=== PATIENT | female | born 1995 | race Caucasian/White ===

== ENCOUNTER 2021-03-29 20:17 | Emergency (ER) | payer OTHER, SELFPAY ==
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
[2021-03-29 20:24] VITALS: BP 124/77; PULSE 78; RESP 17; TEMP 36.7; O2SAT 95; BMI 33.0
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
[2021-03-29] MEDS: Ibuprofen 600 MG TABLET PO (22:16)
[2021-03-29 23:11] VITALS: BP 108/61; PULSE 60; RESP 16; O2SAT 98
--- NOTE | 2021-03-29 23:14 | PC.NURSE ---
PT RESTING ON BED. WAITING FOR CT REPORTS.
== END 2021-03-30 | disposition home or self-care (01) ==
PROVIDERS: Emergency Provider Emergency Medicine; PCP Internal Medicine
DX: S13.4XXA Sprain of ligaments of cervical spine, initial encounter (principal); M54.2 Cervicalgia; V43.52XA Car driver injured in collision with other type car in traffic accident, initial encounter; Y93.9 Activity, unspecified; Y92.410 Unspecified street and highway as the place of occurrence of the external cause; Y99.9 Unspecified external cause status; Z79.899 Other long term (current) drug therapy
CPT/HCPCS: 70450; 72125; 99284

== ENCOUNTER 2022-02-25 14:29 | Outpatient (REF) | payer OTHER, SELFPAY ==
--- NOTE | ~2022-02-25 | US_ITS ---
EXAMINATION: US DIAGNOSTIC ULTRASOUND BREAST, RIGHT CLINICAL INFORMATION: 26-year-old with palpable area noted by patient lateral right breast. Also clinical probable areas noted 6:00, 1 cm from nipple and 11:00, 5 cm from nipple. COMPARISON: Targeted ultrasound right breast 08/05/2007. TECHNIQUE: Ultrasound right breast is targeted to the areas of palpable concern using grayscale imaging and color Doppler without and with harmonics. FINDINGS: There is a macrolobulated anechoic mass 10:00 position 9 cm from nipple measuring 1.0 x 0.6 x 0.9 cm. There is subtle increased through-transmission of sound. No color flow. This likely represents a cyst although hypoechoic fibroadenoma may have similar appearance. Recommend follow-up ultrasound in 6 months. The remainder of the targeted area show no cystic or solid mass. There is no architectural abnormality or duct ectasia. Results are discussed with the patient at time of visit. US/US breast RT limited IMPRESSION: Avascular macrolobulated nodule right breast 10:00 position 9 cm from nipple measuring 1 cm, cyst versus fibroadenoma. ASSESSMENT: BI-RADS 3: Probably Benign RECOMMENDATION: Targeted right breast ultrasound in 6 months. This patient's information was entered into a reminder system with a target due date for their next breast imaging.
== END 2022-02-25 14:30 | disposition home or self-care (01) ==
LOC: HO.MAMMO 14:29
PROVIDERS: Visit Provider Nurse Practitioner Family
DX: N63.11 Unspecified lump in the right breast, upper outer quadrant (principal); N63.15 Unspecified lump in the right breast, overlapping quadrants
CPT/HCPCS: 76642

== ENCOUNTER 2022-09-01 14:59 | Outpatient (REF) | payer OTHER, SELFPAY ==
--- NOTE | ~2022-09-01 | US_ITS ---
EXAMINATION: US DIAGNOSTIC ULTRASOUND BREAST, RIGHT CLINICAL INFORMATION: 26-year-old for follow-up avascular macrolobulated nodule outer right breast 9 cm from All measuring 1 cm, cyst versus hypoechoic fibroadenoma. COMPARISON: Targeted ultrasound right breast 02/25/2022. TECHNIQUE: Ultrasound lateral right breast is performed using grayscale imaging and color Doppler. FINDINGS: There is no focal suspicious finding. There is no solid mass, architectural abnormality, duct ectasia, or edema in the soft tissue planes. There is a small cyst noted at site of previous described nodularity. Prior measurement is 10 x 6 x 9 mm and current measurement 3 x 4 mm. There is increased through-transmission of sound. No associated color flow. This is consistent with regressing cyst. No fibroadenoma demonstrated. Results are discussed with the patient at time of visit. US/US breast RT limited IMPRESSION: The nodule lateral right breast is decreased in size and shows increased through-transmission of sound and no associated color flow consistent with a regressing cyst. ASSESSMENT: BI-RADS 2: Benign RECOMMENDATION: Routine annual mammography screening, beginning age 40, or earlier as clinical risk factors warrant. This patient's information was entered into a reminder system with a target due date for their next mammogram.
== END 2022-09-01 15:00 | disposition home or self-care (01) ==
LOC: HO.MAMMO 14:59
PROVIDERS: PCP Internal Medicine; Visit Provider Internal Medicine
DX: N63.15 Unspecified lump in the right breast, overlapping quadrants (principal)
CPT/HCPCS: 76642

== ENCOUNTER 2023-03-02 20:20 | Emergency (ER) | payer MEDICAID, SELFPAY ==
--- NOTE | ~2023-03-02 | XR_ITS ---
EXAMINATION: XR KNEE, LEFT CLINICAL INFORMATION: Left knee pain COMPARISON: None available. TECHNIQUE: Four views of the left knee. FINDINGS: Bones are normal. No fracture. There is a defect seen in the soft tissues in the anterior raines - has this patient had a injury? A tiny knee joint effusion may be present. Alignment is anatomic. Joint spaces are well maintained. No abnormal soft tissue calcification. XR/XR knee LT 4V IMPRESSION: No evidence of an acute osseous injury. Question of soft tissue injury as described above and tiny joint effusion.
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
[2023-03-02 20:32] VITALS: BP 118/41; PULSE 77; RESP 16; TEMP 36.8; O2SAT 99; BMI 34.1
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
--- OUTSIDE RECORDS SUMMARY | 2023-03-02 21:32 | XMS_ITS | Continuity of Care Document ---
Author Name Unknown Organization [facility] Address [address] [place] [id number]- Care Team Providers Care Animal Daycare Provider Name Role Phone Javan Velazquez MD, Shahana Daugherty Primary Care Physician Encounter [facility] [place] Date(s): 10/11/20 - 11/10/20 [facility] [address] [place] [address] Allergies, Adverse Reactions, Alerts Substance Reaction Severity Status NKA Active Medications ibuprofen 800 mg oral tablet 800 mg, By Mouth, Every 8 hours, PRN, (4-6), may give 400mg per patient preference and re-dose [id number] within 8 hours if needed. Patient should only receive a total of 800mg of Ibuprofen every 8 hours., Refills 0, Maintenance, Pain , Moderate, 09... Start Date: 08/21/18 Status: Ordered ranitidine 300 mg oral tablet 1 tablet = 300 mg, By Mouth, Daily at bedtime, # 30 tablet, 0 Refills, Maintenance, 08/18/18 22:38:54 EDT, Tablet Start Date: 08/18/18 Status: Ordered
--- OUTSIDE RECORDS SUMMARY | 2023-03-02 21:32 | XMS_ITS | Continuity of Care Document ---
Author Name Unknown Organization [facility] Address Unknown Care Team Providers Care Manager Subway Name Role Phone Javan Velazquez MD, Chayo Daugherty Primary Care Physician Encounter [facility] [place] Date(s): 08/22/21 - 09/21/21 [facility] Allergies, Adverse Reactions, Alerts Substance Reaction Severity Status NKA Active Medications acetaminophen 325 mg oral tablet 650 mg, By Mouth, Every 4 hours, PRN, (1-3), may give 325mg per patient preference and re-dose [id number] within 4 hours, if needed. Patient should only receive a total of 650mg of Acetaminophen every 4 hours., Refills 0, Maintenance, Pain , Mild, 0... Start Date: 01/04/21 Status: Ordered acetaZOLAMIDE 250 mg oral tablet 250 mg, 1, tablet, By Mouth, 2 times a day, For the first few days take 250mg at bedtime, then twice a day, # 60 tablet, Refills 4, Tot. Refills 4, Maintenance, 08/22/21 12:39:00 EDT, Route to Pharmacy Electronically, [facility]/pharmacy #[id number], using for PTC... Start Date: 08/22/21 Stop Date: 01/19/22 Status: Ordered famotidine 20 mg oral tablet 20 mg, 1, tablet, By Mouth, 2 times a day, # 60 tablet, Refills 0, Maintenance, 01/02/21 14:25:00 EST, Partial fill upon patient request if the prescription is for a schedule II opioid drug. Start Date: 01/02/21 Status: Ordered ibuprofen 800 mg oral tablet 800 mg, By Mouth, Every 8 hours, PRN, (4-6), may give 400mg per patient preference and re-dose [id number] within 8 hours if needed. Patient should only receive a total of 800mg of Ibuprofen every 8 hours., Refills 0, Maintenance, Pain , Moderate, 09... Start Date: 08/21/18 Status: Ordered Multivitamins By Mouth, Daily, 0 Refills, Maintenance, 01/02/21 14:26:00 EST, Partial fill upon patient request if the prescription is for a schedule II opioid drug. Start Date: 01/02/21 Status: Ordered Problem List Condition Effective Dates Status Health Status Inform ant Chronic GERD(Confirmed) Active
--- OUTSIDE RECORDS SUMMARY | 2023-03-02 21:32 | XMS_ITS | Continuity of Care Document ---
Author Name Unknown Organization [facility] Address Unknown Care Team Providers Care Bridal Consultant Name Role Phone Javan Velazquez MD, Chayo Daugherty Primary Care Physician [phone] Encounter [facility] [place] Date(s): 08/07/21 - 09/06/21 [facility] Allergies, Adverse Reactions, Alerts Substance Reaction Severity Status NKA Active Medications acetaminophen 325 mg oral tablet 650 mg, By Mouth, Every 4 hours, PRN, (1-3), may give 325mg per patient preference and re-dose [id number] within 4 hours, if needed. Patient should [...] 08/22/21 12:39:00 EDT, Route to Pharmacy Electronically, [facility]/pharmacy #[id number], using for PTC... Start Date: 08/22/21 Stop [...] give 400mg per patient preference and re-dose [id number] within 8 hours if needed. Patient should only receive a total of 800mg of Ibuprofen every 8 hours., Refills 0, Maintenance, Pain , Moderate, ... Start Date: 08/21/18 Status: Ordered Multivitamins By Mouth, Daily, 0 Refills, Maintenance, 01/02/21 14:26:00 EST, Partial fill upon patient request if the prescription is for a schedule II opioid drug. Start Date: 01/02/21 Status: Ordered Problem List Condition Effective Dates Status Health Status Inform ant Chronic GERD(Confirmed) Active
--- OUTSIDE RECORDS SUMMARY | 2023-03-02 21:32 | XMS_ITS | Continuity of Care Document ---
Author Name Unknown Organization [facility] Address [address] [place] [id number]- Care Team Providers Care Port Engineer Name Role Phone Javan Velazquez MD, Shahana Daugherty Primary Care Physician Encounter [facility] [place] Date(s): 07/21/20 - 08/20/20 [facility] [address] [place] [id number] [facility] Allergies, Adverse Reactions, Alerts Substance Reaction Severity Status NKA Active Medications ibuprofen 800 mg oral tablet 800 mg, By Mouth, Every 8 hours, PRN, (4-6), may give 400mg per patient preference and re-dose [id number] within 8 hours if needed. Patient should [...]
--- OUTSIDE RECORDS SUMMARY | 2023-03-02 21:32 | XMS_ITS | Continuity of Care Document ---
Author Name Unknown Organization [facility] Address [address] [place] [id number]- Care Team Providers Care Quality Assurance Representative Name Role Phone Javan Velazquez MD, Shahana Daugherty Primary Care Physician [phone] Encounter [facility] [place] Date(s): 11/04/20 - 12/04/20 [facility] [address] [place] [id number]- Allergies, Adverse Reactions, Alerts Substance Reaction Severity Status NKA Active Medications ibuprofen 800 mg oral tablet 800 mg, By Mouth, Every 8 hours, PRN, (4-6), may give 400mg per patient preference and re-dose [id number] within 8 hours if needed. Patient should [...]
--- OUTSIDE RECORDS SUMMARY | 2023-03-02 21:32 | XMS_ITS | Continuity of Care Document ---
Author Name Unknown Organization [facility] Address [address] [place] [id number]- Care Team Providers Care Muck Hauler Name Role Phone Javan Velazquez MD, Shahana Daugherty Primary Care Physician Encounter [facility] [place] Date(s): 08/29/20 - 09/28/20 [facility] [address] [place] [id number] [facility] Attending Physician: Alisa Zamorano Admitting Physician: Admniki, Alisa Referring Physician: Admtr, Ar8 Allergies, Adverse Reactions, Alerts Substance Reaction Severity Status NKA Active Medications ibuprofen 800 mg oral tablet 800 mg, By Mouth, Every 8 hours, PRN, (4-6), may give 400mg per patient preference and re-dose [id number] within 8 hours if needed. Patient should [...]
--- OUTSIDE RECORDS SUMMARY | 2023-03-02 21:32 | XMS_ITS | Continuity of Care Document ---
Author Name Unknown Organization [facility] Address [address] [place] [phone]- Care Team Providers Care Airline Managerial Supervisor Name Role Phone Javan Velazquez MD, Shahana Daugherty Primary Care Physician [place] [facility] [place] 12[place]24[place]20 - 01/23/21 [facility] [address] [place] [id number] Allergies, Adverse Reactions, Alerts Substance Reaction Severity Status NKA Active Medications acetaminophen 325 mg oral tablet 650 mg, By Mouth, Every 4 hours, PRN, (1-3), may give 325mg per patient preference and re-dose [id number] within 4 hours, if needed. Patient should only receive a total of 650mg of Acetaminophen every 4 hours., Refills 0, Maintenance, Pain , Mild, 0... Start Date: 01/04/21 Status: Ordered famotidine 20 mg oral tablet [...] give 400mg per patient preference and re-dose [id number] within 8 hours if needed. Patient should [...]
--- OUTSIDE RECORDS SUMMARY | 2023-03-02 21:32 | XMS_ITS | Continuity of Care Document ---
Author Name Unknown Organization [facility] Address Unknown Care Team Providers Care Shoe Repairer Helper Name Role Phone Javan Velazquez MD, Cassy Primary Care Physician [phone] [place] [facility] [place]11[place] - 11/08/21 [facility] Attending Physician: Not on Staff, Attending MD Allergies, Adverse Reactions, Alerts Substance Reaction Severity Status NKA Active Medications acetaminophen 325 mg oral tablet 650 mg, By Mouth, Every 4 hours, PRN, (1-3), may give 325mg per patient preference and re-dose [id number] within 4 hours, if needed. Patient should [...] 08/22/21 12:39:00 EDT, Route to Pharmacy Electronically, [facility]/pharmacy #[id number], using for PTC... Start Date: 08/22/21 Stop [...] give 400mg per patient preference and re-dose [id number] within 8 hours if needed. Patient should [...]
--- OUTSIDE RECORDS SUMMARY | 2023-03-02 21:32 | XMS_ITS | Continuity of Care Document ---
Author Name Unknown Organization [facility] Address Unknown Care Team Providers Care Blender Helper Name Role Phone Javan Velazquez MD, Chayo Daugherty Primary Care Physician Encounter [facility] [place] Date(s): 07/08/21 - 08/07/21 [facility] Allergies, Adverse Reactions, Alerts Substance Reaction Severity Status NKA Active Medications acetaminophen 325 mg oral tablet 650 mg, By Mouth, Every 4 hours, PRN, (1-3), may give 325mg per patient preference and re-dose [id number] within 4 hours, if needed. Patient should [...] give 400mg per patient preference and re-dose [id number] within 8 hours if needed. Patient should [...]
--- OUTSIDE RECORDS SUMMARY | 2023-03-02 21:32 | XMS_ITS | Continuity of Care Document ---
Author Name Unknown Organization [facility] Address Unknown Care Team Providers Care Cushion Assembler Name Role Phone Javan Velazquez MD, Chayo Daugherty Primary Care Physician Encounter [facility] Date(s): 06/24/21 - 07/24/21 [facility] Allergies, Adverse Reactions, Alerts Substance Reaction Severity Status NKA Active Medications acetaminophen 325 mg oral tablet 650 mg, By Mouth, Every 4 hours, PRN, (1-3), may give 325mg per patient preference and re-dose [id number] within 4 hours, if needed. Patient should [...] give 400mg per patient preference and re-dose [id number] within 8 hours if needed. Patient should [...]
--- OUTSIDE RECORDS SUMMARY | 2023-03-02 21:32 | XMS_ITS | Continuity of Care Document ---
Author Name Unknown Organization [facility] Address [address], [address] [place] [phone]- Care Team Providers Care Customer Solutions Supervisor Name Role Phone Javan Velazquez MD, Chayo Daugherty Primary Care Physician Encounter [facility] [place] Date(s): 07/08/21 - 07/15/21 [facility] [address], [address], [address] [place] [id number] Attending Physician: Not on Staff, Attending MD Referring Physician: Slim Adkins OD Allergies, Adverse Reactions, Alerts Substance Reaction Severity Status NKA Active Medications acetaminophen 325 mg oral tablet 650 mg, By Mouth, Every 4 hours, PRN, (1-3), may give 325mg per patient preference and re-dose [id number] within 4 hours, if needed. Patient should [...] give 400mg per patient preference and re-dose [id number] within 8 hours if needed. Patient should [...] Health Status Inform ant Chronic GERD(Confirmed) Active Vital Signs Most recent to oldest [Reference Range]: 1 Height 168 cm (07/08/21 12:59 PM) Oxygen Saturation [94-100 %] 98 % (07/08/21 12:59 PM) Pulse Rate [55-90 bpm] 81 bpm (07/08/21 12:59 PM) Blood Pressure [90-138/55-84 mm Hg] 112/ 61mm Hg (07/08/21 12:59 PM) Temperature [96.8-100.4 DegF] 97.0 DegF (07/08/21 12:59 PM) Blood pressure sites Arm, left (07/08/21 12:59 PM) Temperature Route Temporal (07/08/21 12:59 PM)
--- OUTSIDE RECORDS SUMMARY | 2023-03-02 21:32 | XMS_ITS | Continuity of Care Document ---
Author Name Unknown Organization [facility] Address Unknown Care Team Providers Care Textile Colorist Formulator Name Role Phone Javan Velazquez MD, Cassy Primary Care Physician [place] [facility] [place](s): 10/09/21 - 11/08/21 [facility] Attending Physician: Alisa Zamorano Admitting Physician: Alisa Zamorano Referring Physician: Alisa Zamorano Allergies, Adverse Reactions, Alerts Substance Reaction Severity Status NKA Active Medications acetaminophen 325 mg oral tablet 650 mg, By Mouth, Every 4 hours, PRN, (1-3), may give 325mg per patient preference and re-dose [id number] within 4 hours, if needed. Patient should [...] 08/22/21 12:39:00 EDT, Route to Pharmacy Electronically, [facility]/pharmacy #[id number], using for PTC... Start Date: 08/22/21 Stop [...] give 400mg per patient preference and re-dose [id number] within 8 hours if needed. Patient should [...]
[2023-03-02] MEDS: Diphth,Pertus(ACell),Tet Adult 0.5 ML SYRINGE IM (21:42)
[2023-03-02] MEDS: cephALEXin 500 MG CAPSULE 1000 MG PO (21:44)
[2023-03-02] MEDS: Ibuprofen 800 MG TABLET PO (21:44)
[2023-03-02] MEDS: Lidocaine HCl 1 % MPF 5 ML VIAL 10 ML INFILTRATI (21:45)
== END 2023-03-02 22:39 | disposition home or self-care (01) ==
PROVIDERS: Emergency Provider Emergency Medicine; PCP Internal Medicine
DX: S81.012A Laceration without foreign body, left knee, initial encounter (principal); W45.8XXA Other foreign body or object entering through skin, initial encounter; F12.90 Cannabis use, unspecified, uncomplicated; Y93.11 Activity, swimming; Y92.89 Other specified places as the place of occurrence of the external cause; Y99.9 Unspecified external cause status
CPT/HCPCS: 12034; 73564; 90471; 90715; 99283; 99284

== ENCOUNTER → 2023-03-05 09:01 | Outpatient (BNVA) | payer MEDICAID, SELFPAY | PROVIDERS: Visit Provider Physician Assistant | DX: S86.812A Strain of other muscle(s) and tendon(s) at lower leg level, left leg, initial encounter (principal); S81.012A Laceration without foreign body, left knee, initial encounter | CPT/HCPCS: 99202 ==

== ENCOUNTER → 2023-03-11 14:31 | Outpatient (BNVA) | payer MEDICAID, SELFPAY | PROVIDERS: Visit Provider Physician Assistant | DX: S86.812D Strain of other muscle(s) and tendon(s) at lower leg level, left leg, subsequent encounter (principal); S81.012D Laceration without foreign body, left knee, subsequent encounter | CPT/HCPCS: 99212 ==

== ENCOUNTER → 2023-03-23 13:08 | Outpatient (BNVA) | payer MEDICAID, SELFPAY | PROVIDERS: Visit Provider Physician Assistant | DX: S76.112A Strain of left quadriceps muscle, fascia and tendon, initial encounter (principal); S81.012A Laceration without foreign body, left knee, initial encounter; W16.92XA Jumping or diving into unspecified water causing other injury, initial encounter; Y93.F9 Activity, other caregiving; Y92.838 Other recreation area as the place of occurrence of the external cause; Y99.8 Other external cause status | CPT/HCPCS: 99212 ==

== ENCOUNTER 2023-08-18 16:09 | Outpatient (REF) | payer OTHER, SELFPAY ==
[2023-08-19 04:31] LABS: CT PCR NOT DETECTED (Not Detect.); NG PCR NOT DETECTED (Not Detect.)
[2023-08-19 14:30] LABS: BV Int Neg Control Negative (Negative); BV Int Pos Control Positive (Positive)
== END 2023-08-18 16:10 | disposition home or self-care (01) ==
LOC: HO.CHCLNP 16:09
PROVIDERS: Visit Provider Family Medicine
DX: Z12.4 Encounter for screening for malignant neoplasm of cervix (principal); N89.8 Other specified noninflammatory disorders of vagina
CPT/HCPCS: 0353U; 87480; 87510; 87660; 88142

== ENCOUNTER 2023-09-14 15:50 | Outpatient (REF) | payer OTHER, SELFPAY | END 2023-09-14 15:51 | disposition home or self-care (01) | LOC: HO.CHCLNP 15:50 | PROVIDERS: Visit Provider Family Medicine | DX: N89.8 Other specified noninflammatory disorders of vagina (principal) | CPT/HCPCS: 36415; 81513 ==

== ENCOUNTER 2024-10-17 09:55 | Outpatient (REF) | payer OTHER, SELFPAY ==
[2024-10-22 16:58] LABS: Bordetella DNA source Swab; Bordetella parapertussis DNA Not Detected (Not Detected); Bordetella pertussis DNA Not Detected (Not Detected)
[2024-10-22 19:54] LABS: Pertussis Testing 26 IU/mL
== END 2024-10-17 09:56 | disposition home or self-care (01) ==
LOC: HO.HHCL 09:55
PROVIDERS: Visit Provider Internal Medicine
DX: R05.2 Subacute cough (principal)
CPT/HCPCS: 36415; 86615; 87798

== ENCOUNTER 2025-01-23 13:37 | Outpatient (REF) | payer OTHER, SELFPAY ==
--- OUTSIDE RECORDS SUMMARY | 2025-01-23 16:47 | XMS_ITS | Clinical Summary ---
Author Organization [employer] Address [address] [facility] 7[address] [place] [address] Care Team Providers Care Singing Waiter Or Waitress Name Role Phone Desiree Ash MD Primary Care Provider [phone] Allergies No known active allergies Medications ibuprofen 800 MG tablet Take 800 mg by mouth every 8 (eight) hours if needed. 3 Active fluticasone (Flonase Allergy Relief) 50 MCG/ACT nasal spray Administer 1 spray into each nostril 2 times daily for 7 days, THEN 1 spray in the morning. Shake gently. Before first use, prime pump. After use, clean tip and replace cap.. 16 g 12 4 Active amphetamine-dex troamphetamine XR (Adderall XR) 15 MG 24 hr capsule Take 15 mg by mouth Once per day. 4 Active cetirizine (ZyrTEC) 10 MG tablet Take 1 tablet (10 mg) by mouth Once per day. 30 tablet 11 4 09/14/20 25 Active hydrOXYzine HCl (Atarax) 10 MG tablet Take 1 tablet (10 mg) by mouth every 6 (six) hours if needed for anxiety. 120 tablet 2 4 Active diphenhydrAMINE (BENADryl) 25 MG tablet Take 1 tablet (25 mg) by mouth if needed at bedtime (cough). Can also take during the day for postnasal drip with cough as needed every 6 hours. 30 tablet 4 Active phenazopyridine (Pyridium) 200 MG tablet Take 1 tablet (200 mg) by mouth with breakfast, with lunch, and with evening meal for 2 days. 6 tablet 5 01/25/20 25 Active fluconazole (Diflucan) 150 MG tablet Take 1 tablet (150 mg) by mouth Once per day for 1 dose. 1 tablet 5 01/24/20 25 Active sulfamethoxazol e-trimethoprim (Bactrim DS) 800-160 MG tablet Take 1 tablet by mouth 2 times daily for 3 days. 6 tablet 5 01/26/20 25 Active Active Problems Problem Noted Date Diagnosed Date Physical exam, annual 09/14/2024 Assessment & Plan (10/19/2024 9:35 AM EST): 29 y.o. presented for annual physical exam. Reviewed gaps and IZ with patient. 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 Will start on loratadine and send for pulmonary function test. Follow up in 6-8 weeks. Gastroesophageal reflux disease 05/12/2023 Resolved Problems Problem Noted Date Diagnosed Date Resolved Date Hemorrhoids 08/18/2023 09/14/2024 Assessment & Plan (08/18/2023 2:22 PM EDT): Patient with external hemorrhoid at 12 o'clock. Will send anusol and topical nitroglycerin. Cervical cancer screening 08/18/2023 Assessment & Plan (08/18/2023 2:24 PM EDT): Pap smear order, f/up following ASCCP guidelines. Routine PAP/gen probe GC/chlam obtained. FU results. Vaginal itching 08/18/2023 09/14/2024 Assessment & Plan (09/14/2023 2:27 PM EDT): Patient still presents concern of vaginal itching was given a SureSwab, will send for evaluation. Assessment & Plan (08/18/2023 2:23 PM EDT): Patient with complaints of vaginal itchiness , reports previous dx of candidal infection, will send diflucan Pseudotumor cerebri syndrome 05/12/2023 05/13/2023 Encounters Date Type Department Care Team Description 01/23/2025 10:00 AM EST Office Visit [facility] [address] [place] [address] [phone] Brad Omer MD Dysuria (Primary Dx); Vaginal discharge 01/11/2025 Travel 10/23/[address] [facility] [address] [place] [phone] Sandra Wallace MD from Last 3 Months Immunizations Name Administration Dates Next Due Influenza Injectable Quadriv alant Preservative Free IIV4 MDCK 08/05/2022 Influenza injectable quadriv alent IIV4 with preservative 11/13/2015 Influenza injectable quadriv alent preservative free 08/18/2023,09/23/2021,12/27/2020,2017 Influenza, IIV3, injectable 09/04/2014 Pfizer Covid-19 Vaccine 12+ Bivalent 11/26/2022 Tdap 03/02/2023,,08/12/2018,2016,09/04/2014 Family History Medical History Relation Name Comments Hypertension Father Liver cancer Father Breast cancer Maternal Grandmother Skin cancer Maternal Grandmother Ulcers Mother Relation Name Status Comments Father Maternal Grandmother Mother Social History Tobacco Use Types Packs/Day Years Used Date Smoking Tobacco: Never Passive Smoke Exposure: Never Smokeless Tobacco: Never Tobacco Cessation:Counseling Given: Not Answered Alcohol Use Standard Drinks/Week Comments Never 0 (1 standard drink = 0.6 oz pur e alcohol) Depression Answer Date Recorded Patient Health Questionnaire-9 Score 2 09/14/2024 Patient Health Questionnaire-9 Score 2 09/14/2024 Last PHQ-9: Questionnaire Data Not on file 1 Housing Stability Answer Date Recorded What is your housing situation today? I have lakhwinder fernandez 09/05/[address] you li ve. Do you have problems with any of the following? None of the above 09/05/2024 Food Insecurity Answer Date Recorded Within the past 12 months, y ou worried that your food would run out before you got money to buy more: Never True 09/05/2024 Within the past 12 months,th e food you bought just didn't last and you didn't have enough money to get more: Never True 06/2024 Transportation Answer Date Recorded In the past 12 months, has l ack of transportation kept you from medical appts, meetings, work or from getting things needed for daily living? No 09/05/2024 Utilities Answer Date Recorded In the past 12 months, has t he electric, gas, oil or water company threatened to shut off services in your home? No 09/05/2024 Depression Answer Date Recorded Patient Health Questionnaire-2 Score 0 09/14/2024 Internet Access Answer Date Recorded Internet Access Q1 Yes 09/05/2024 Internet Access Q2 Not on file 09/05/2024 Comments No Sex and Gender Information Value Date Recorded Sex Assigned at Female 09/28/2022 10:15 AM EDT Legal Sex Female 10:15 AM EDT Gender Identity Female 03/31/2023 10:37 AM EDT Sexual Orientation Straight 03/31/2023 10 :37 AM EDT Last Filed Vital Signs Vital Sign Reading Time Taken Comments Blood Pressure 127/69 01/23/2025 10:27 AM EST Pulse 69 01/23/2025 10:27 AM EST Temperature 36.9 ??C (98.4 ??F) 01/23/2025 10:[address] Respiratory Rate 17 01/23/2025 10:27 AM EST Oxygen Saturation 97% 01/23/2025 10:27 AM EST Inhaled Oxygen Concentration - - Weight 91.7 kg (202 lb 4 oz) 01/23/2025 10:27 AM EST Height 165.1 cm (5' 5 ) 01/23/2025 10:27 AM EST Body Mass Index 33.66 01/23/2025 10:27 AM EST Plan of Treatment Upcoming Encounters Date Type Department Care Team (Late st Contact Info) Description 05/11/2025 1:00 PM EDT Office Visit [facility] [address] [place] [address] Liz Webb, OD [address] [place] [address] Health Maintenance Due Date Last Done Comments HIV Screening 1995 Lipid Panel 1994 Family Planning (PISQ) 2009 Hepatitis C Screening 2012 Hepatitis B Vaccines (1 of 3 - 19+ 3-dose series) 2013 HPV/Cotest 2024 Influenza Vaccine (#1) 2025 , 08/05/2022, 09/23/2021, Additional history exists Postponed from 07/30/2024 (Patient Refused) SDOH Screening 09/05/2025 09/05/2024 Alcohol/Substance Use Screening 09/14/2025 09/14/2024 COVID-19 Vaccine ( season) 2025 11/26/2022, 03/26/2022, 05/01/2021, Additional history exists Postponed from 07/30/2024 (Patient Refused) Depression Screening 09/14/2025 09/14/2024, 09/14/20 Tobacco Screening 01/23/2026 01/23/2025 Cervical Cancer Screening 08/18/2026 Pap Smear 08/18/2026 08/18/2023 DTaP/Tdap/Td Vaccines (6 - Td or Tdap) 03/02/2033 03/02/2023, 12/27/2020, 08/12/2018, Additional history exists Zoster Vaccines (1 of 2) 2044 RSV Patients and Patients Aged 60 years or older (1 - 1-dose 75+ series) 2069 HIB Vaccines Aged Out No longer eligi ble based on patient's age to complete this topic HPV Vaccines Aged Out No longer eligi ble based on patient's age to complete this topic Hepatitis A Vaccines Aged Out No long er eligible based on patient's age to complete this topic IPV Vaccines Aged Out No longer eligi ble based on patient's age to complete this topic Meningococcal Vaccine Aged Out No janes jah eligible based on patient's age to complete this topic Pneumococcal Vaccine: Pediatrics (0 to 5 Years) and At-Risk Patients (6 to 49) Years) Aged Out No longer eligible based on patient's age to complete this topic RSV under 20 months Aged Out No longe r eligible based on patient's age to complete this topic Rotavirus Vaccines Aged Out No longer eligible based on patient's age to complete this topic Procedures Procedure Name Priority Date/Time Associated Diagnosis Comments POCT URINALYSIS DIPSTICK Routine 01/23/2025 10:42 AM EST Dysuria PAP SMEAR Routine 08/18/2023 11:47 AM EDT from Last 3 Months or Most Recently Relevant to Health Maintenance Results * POCT Urinalysis (01/23/2025 10:42 AM EST) Color, UA Yellow Clarity, UA Clear Glucose, UA Negative Bilirubin, UA Negative Ketones, UA Negative Spec Grav, UA 1.020 Blood, UA Negative Negative, None Detected pH, UA 6.0 Protein, UA Negative Urobilinogen, UA 0.2 Leukocytes, UA Negative Negative, Rare, Trace Nitrite, UA Negative Negative, None Detected Appearance, UA clear QC Media Lot # [id number] Lot# Expiration Date Urine 01/23/2025 10:4 2 AM EST Brad Omer MD POINT OF CARE TEST ENTER/EDIT OR DERABLES Final Result * Pap Smear (08/18/2023 11:47 AM EDT) 08/18/2023 11:4 7 AM EDT 08/19/2023 8:45 AM EDT Narrative [facility] - 08/30/2023 1:32 PM EDT ----- ------- Name: Tanisha NashDottie Jaquez ? Age/Sex: 27/F ? : 1995 Unit#: [id number] ?? Attend Dr: Desiree Ash MD ?Re08/18/23 ?Status: DEP REF ? Location: HO.CHCLNP ? Disch: ? ----- ------- SPEC : [id number] ?RECD: 08/19/23 ? STATUS: ??SOUT ? REQ NUM: [id number] ? RO: 08/18/23-114 ? SUBM DR: Desiree Ash MD ? ENTERED: ??08/19/23 ?SP TYPE: Pap Smr ?OTHR DR: ? ORDERED: ??Pap Smear ? Interpretation ?? Satisfactory for evaluation. ?? Negative for intraepithelial lesion or malignancy. ?Clinical Information LMP: Unknown date Previous PAP test: 08/05/23, Unknown findings ? Material Received ?? ThinPrep-Cervical ----- ------- Signed (signature on file) BIBI Seals (ASCP) 08/30/23 1332 ? ----- ------- ? END OF REPORT ? us Desiree Ash MD LAB CYTOLOGY ORDERABLES Final Result [facility] [address] [place] [address] [phone] from Last 3 Months or Most Recently Relevant to Health Maintenance Insurance * Guarantor: Dottie Garay Account Type Relation to Patient Date of Phone Billing Address Personal/Family Self [address] [place] [address] [facility] , [address] [place] [address] [facility] * Guarantor: Dottie Garay Account Type Relation to Patient Date of Phone Billing Address Personal/Family Self [address] [place] [address] * Guarantor: Dottie Garay Account Type Relation to Patient Date of Phone Billing Address Personal/Family Self [address] [place] [address] Care Teams Singing Waiter Or Waitress Relationship Specialty Start Date End Date Desiree Ash MD [address] [place] [address] PCP - General Family Medicine 05/13/23 Carol Rosa APRN Psychiatrist 08/29/24
--- OUTSIDE RECORDS SUMMARY | 2025-01-23 16:47 | XMS_ITS | Encounter Summary ---
Author Organization [employer] Address [address] [facility] 7t [place] [address] Care Team Providers Care Real Estate Services Administrator Name Role Phone Desiree Ash MD Primary Care Provider [phone] Reason for Visit * Reason Comments UTI Vaginal Discharge Encounter Details Date Type Department Care Team ([facility] st Contact Info) Description 01/23/2025 10:00 AM EST Office Visit [facility] [address] [place] [address] [phone] Brad Omer MD [address] [place], [place] [phone] Dysuria (Primary Dx); Vaginal discharge Social History Tobacco Use Types Packs/Day Years Used Date Smoking Tobacco: Never Passive Smoke Exposure: Never Smokeless Tobacco: Never Alcohol Use Standard Drinks/Week Comments Never 0 [...] Orientation Straight 03/31/2023 10 :37 AM EDT documented as of this encounter Last Filed Vital Signs Vital Sign Reading [...] Mass Index 33.66 01/23/2025 10:27 AM EST documented in this encounter Progress Notes * Brad Omer MD - 01/23/2025 10:00 AM EST Subjective Patient ID: Dottie Garay is a 29 y.o. female. HPI 4 days ago Dottie had onset of urinary urgency, frequency, vaginal discharge. No burning on urination. Denies fever, chills, n/v, vaginal discharge, abdominal or flank pain. Lives with , 3 children. Never smoked. Occasional EtOH. LMP=last week. Not employed. Patient Active Problem List Diagnosis Gastroesophageal reflux disease Congenital tilted optic nerve (CMS/HCC) Chronic cough Chronic pain of left knee Polymorphic light eruption Physical exam, annual The following portions of the chart were reviewed this encounter and updated as appropriate: Tobacco Allergies Meds Problems Med Hx Surg Hx Fam Hx Review of Systems Constitutional: Negative for fever. Respiratory: Negative for shortness of breath. Cardiovascular: Negative for chest pain. Gastrointestinal: Negative for abdominal pain. Genitourinary: Positive for frequency, urgency and vaginal discharge. Negative for flank pain. Skin: Negative for rash. Neurological: Negative for headaches. Objective Physical Exam Constitutional: Appearance: Normal appearance. HENT: Nose: Nose normal. Eyes: Conjunctiva/sclera: Conjunctivae normal. Pupils: Pupils are equal, round, and reactive to light. Cardiovascular: Rate and Rhythm: Normal rate and regular rhythm. Heart sounds: No murmur heard. Pulmonary: Effort: Pulmonary effort is normal. Breath sounds: Normal breath sounds. Abdominal: General: Abdomen is flat. Palpations: Abdomen is soft. Tenderness: There is no abdominal tenderness. There is no right CVA tenderness or left CVA tenderness. Musculoskeletal: General: Normal range of motion. Cervical back: No tenderness. Skin: Findings: No rash. Neurological: Mental Status: She is alert. Gait: Gait is intact. Psychiatric: Mood and Affect: Mood normal. Behavior: Behavior normal. Procedures Assessment/Plan Diagnoses and all orders for this visit: Dysuria Urine C&S pending, self vaginal swabs for BV panel, CT/GC pending. Prescribed Bactrim DS, Pyridium, and Diflucan (states h/o Candidal vulvovaginitis with antibiotics). Rtc if not improving. - POCT Urinalysis - Bacterial Vaginosis - Culture, Urine, Routine Vaginal discharge As above. - Chlamydia/N. Gonorrhoeae RNA, TMA, Urogenitial Other orders - phenazopyridine (Pyridium) 200 MG tablet; Take 1 tablet (200 mg) by mouth with breakfast, with lunch, and with evening meal for 2 days. - fluconazole (Diflucan) 150 MG tablet; Take 1 tablet (150 mg) by mouth Once per day for 1 dose. - sulfamethoxazole-trimethoprim (Bactrim DS) 800-160 MG tablet; Take 1 tablet by mouth 2 times daily for 3 days. documented in this encounter Plan of Treatment Upcoming Encounters Date Type Department Care Team (Late st Contact Info) Description 05/11/2025 1:00 PM EDT Office Visit [facility] [address] [place] [address] Liz Webb, OD [address] [place] [address] Scheduled Orders Name Type Priority Associated Diagnoses Orde r Schedule Chlamydia/N. Gonorrhoeae RNA, TMA, Urogenitial Microbiology Routine Vaginal discharge Ordered: 01/23/2025 Bacterial Vaginosis Microbiology Routine Dysuria Ordered: 01/23/2025 Culture, Urine, Routine Microbiology Routine Dysuria Ordered: 01/23/2025 documented as of this encounter Procedures Procedure Name Priority Date/Time Associated Diagnosis Comments POCT URINALYSIS DIPSTICK Routine 01/23/2025 10:42 AM EST Dysuria documented in this encounter Results * POCT Urinalysis (01/23/2025 10:42 AM [...] CARE TEST ENTER/EDIT OR DERABLES Final Result documented in this encounter Visit Diagnoses Diagnosis Dysuria- Primary Vaginal discharge Leukorrhea, not specified as infective documented in this encounter Additional Health Concerns Assessment Noted Time PHQ-9 Depression Total Score: 2 09/14/20 24 9:45 AM EDT documented as of this encounter Care Teams Real Estate Services Administrator Relationship Specialty Start Date End Date Desiree Ash MD [address] [place] [address] PCP - General Family Medicine 05/13/23 Carol Rosa APRN Psychiatrist 08/29/24 documented as of this encounter
--- OUTSIDE RECORDS SUMMARY | 2025-01-23 16:47 | XMS_ITS | Encounter Summary ---
Author Organization [employer] Address [address] [facility] [address] [place] [address] Care Team Providers Care Facilities Maintenance Technician Name Role Phone Desiree Ash MD Primary Care Provider [phone] Reason for Visit * Reason Onset Date Comments OV notes 08/23/2023 Encounter Details Date Type Department Care Team ([facility] st Contact Info) Description 08/23/2023 Telephone [facility] [address] [place], [place] [phone] Desiree Ash MD [address] [place] [address] OV notes Social History Tobacco Use Types Packs/Day Years Used Date Smoking Tobacco: Never Passive Smoke Exposure: Never Smokeless Tobacco: Never Alcohol Use Standard Drinks/Week Comments Never 0 (1 standard drink = 0.6 oz pur e alcohol) Depression Answer Date Recorded Patient Health Questionnaire-9 Score 9 05/13/2023 Depression Answer Date Recorded Patient Health Questionnaire-2 Score 0 05/13/2023 Comments Unknown Sex and Gender Information Value Date Recorded Sex Assigned at Female 09/28/2022 10:15 AM EDT Legal Sex Female 10:15 AM EDT Gender Identity Female 03/31/2023 10:37 AM EDT Sexual Orientation Straight 03/31/2023 10 :37 AM EDT documented as of this encounter Miscellaneous Notes * Telephone Encounter - Ana Damico - 08/24/2023 11:49 AM EDT Notes faxed * Telephone Encounter - Milly Núñez - 08/23/2023 1:46 PM EDT Tc from otilio requesting OV notes for [facility] general surgery referral to be faxed to [phone] and to state attention otilio documented in this encounter Plan of Treatment Upcoming Encounters Date Type Department Care Team (Late st Contact Info) Description 05/11/2025 1:00 PM EDT Office Visit [facility] [address] [place] [address] Liz Webb, OD [address] [place], [place] [phone] documented as of this encounter Visit Diagnoses Not on filedocumented in this encounter Additional Health Concerns Assessment Noted Time PHQ-9 Depression Total Score: 9 05/13/20 23 10:53 AM EDT documented as of this encounter Care Teams Facilities Maintenance Technician Relationship Specialty Start Date End Date Desiree Ash MD [address] [place] [address] PCP - General Family Medicine 05/13/23 Carol Rosa APRN Psychiatrist 08/29/24 documented as of this encounter
--- OUTSIDE RECORDS SUMMARY | 2025-01-23 16:47 | XMS_ITS | Encounter Summary ---
Author Organization [employer] Address [address] [facility] [address] [place] [address] Care Team Providers Care Vocational Rehabilitation Technician Name Role Phone Desiree Ash MD Primary Care Provider Encounter Details Date Type Department Care Team (Late Contact Info) Description 06/09/2023 Orders Only [facility] [address] [place] [address] Brad Omer MD [address] [place] [address] Social History Tobacco Use Types Packs/Day Years [...] Orientation Straight 03/31/2023 10 :37 AM EDT COVID-19 Exposure Response Date Recorded In the last 10 days, have yo u been in contact with someone who was confirmed or suspected to have Coronavirus/COVID-19? No / Unsure 06/03/2023 12:50 PM EDT documented as of this encounter Plan of Treatment Upcoming Encounters Date Type Department Care Team (Late Contact Info) Description 05/11/2025 1:00 PM EDT Office Visit [facility] [address] [place] [address] Liz Webb, OD [address] [place] [address] documented as of this encounter Procedures Procedure Name Priority Date/Time Associated Diagnosis Comments PAP SMEAR Routine 08/18/2023 11:47 AM EDT BACTERIAL VAGINOSIS PANEL Routine 08/18/2023 11:35 AM EDT documented in this encounter Results * Pap Smear (08/18/2023 11:47 AM EDT) 08/18/2023 11:4 7 AM EDT 08/19/2023 8:45 AM EDT [facility] - 08/30/2023 1:32 PM EDT ----- ------- Name: Dottie Harris ? Age/Sex: 27/F ? : 1995 Unit#: [id number] ?? Attend Dr: Desiree Ash MD ?Re08/18/23 ?Status: DEP REF ? Location: HO.CHCLNP ? Disch: ? ----- ------- SPEC : [id number] ?RECD: 08/19/23 ? STATUS: ??SOUT ? REQ NUM: [id number] ? RO: 08/18/23 ? SUBM DR: Desiree Ash MD ? ENTERED: ??08/19/23 ?SP TYPE: Pap Smr ?OTHR : ? ORDERED: ??Pap Smear ? Interpretation ?? Satisfactory for evaluation. ?? Negative for intraepithelial lesion or malignancy. ?Clinical Information LMP: Unknown date Previous PAP test: 08/05/23, Unknown findings ? Material Received ?? ThinPrep-Cervical ----- ------- Signed (signature on file) BIBI Seals (ASCP) 08/30/23 1332 ? ----- ------- ? END OF REPORT ? us Desiree Ash MD LAB CYTOLOGY ORDERABLES Final Result Performing Organization Address [facility] de Phone Number [facility] [address] [place] [address] [phone] * Bacterial Vaginosis (08/18/2023 11:35 AM EDT) Trichomonas DNA Probe Negative Negative [facility] Gardnerella DNA Probe Negative Negative [facility] Melyssa DNA Probe Negative Negative [facility] 08/18/2023 11:3 5 AM EDT 08/18/2023 5:25 PM EDT us Desiree Ash MD LAB MICROBIOLOGY - GENERAL OR DERABLES Final Result Performing Organization Address [facility] de Phone Number [facility] [address] [place] [address] [phone] documented in this encounter Visit Diagnoses Not on filedocumented in this encounter Additional Health Concerns Assessment Noted Time PHQ-9 Depression Total Score: 9 05/13/20 10:53 AM EDT documented as of this encounter Care Teams Vocational Rehabilitation Technician Relationship Specialty Start Date End Date Desiree Ash MD [address] [place] [address] PCP - General Family Medicine 05/13/23 Carol Rosa APRN Psychiatrist 08/29/24 documented as of this encounter
--- OUTSIDE RECORDS SUMMARY | 2025-01-23 16:47 | XMS_ITS | Encounter Summary ---
Author Organization [employer] Address [address] [facility] [address] [place] [address] Care Team Providers Care Senior Data Developer Name Role Phone Desiree Ash MD Primary Care Provider [phone] Encounter Details Date Type Department Care Team (Latest Contact Info) Description 01/11/2025 Travel Social History Tobacco Use Types Packs/Day Years [...] AM EDT documented as of this encounter Plan of Treatment Upcoming Encounters Date Type Department Care Team (Late st Contact Info) Description 05/11/2025 1:00 PM EDT Office Visit [facility] [address] [place] [address] JonLiz alvares, OD [address] [place] [address] documented as of this encounter Visit Diagnoses Not on filedocumented in this encounter Additional Health Concerns Assessment Noted Time PHQ-9 Depression Total Score: 2 09/14/20 24 9:45 AM EDT documented as of this encounter Care Teams Senior Data Developer Relationship Specialty Start Date End Date Desiree Ash MD [address] [place] [address] PCP - General Family Medicine 05/13/23 Carol Rosa APRN Psychiatrist 08/29/24 documented as of this encounter
[2025-01-24 11:47] LABS: CT PCR NOT DETECTED (Not Detect.); NG PCR NOT DETECTED (Not Detect.)
[2025-01-24 13:49] LABS: Bacterial Vaginosis PCR NEGATIVE (Negative); Candida Group PCR NOT DETECTED (Not Detect); Candida glab krusei PCR NOT DETECTED (Not Detect); Trichomonas vaginalis PCR NOT DETECTED (Not Detect)
== END 2025-01-23 13:38 | disposition home or self-care (01) ==
LOC: HO.HHCLNP 13:37
PROVIDERS: Visit Provider Emergency Medicine
DX: R30.0 Dysuria (principal); N89.8 Other specified noninflammatory disorders of vagina
CPT/HCPCS: 81515; 87086; 87491; 87591